=== PATIENT | male | born 1950 | race Caucasian/White ===

== ENCOUNTER 2017-07-25 14:34 | Observation (INO) ==
--- NOTE | 2017-07-25 15:21 | Emergency Department Note ---
Disposition Clinical Impression: Transaminitis, Liver mass, Hypokalemia, Weakness, Dehydration Nausea & vomiting Qualifiers: Vomiting type: unspecified Vomiting Intractability: intractable Qualified Code( s): R11.2 - Nausea with vomiting, unspecified Diarrhea Qualifiers: Diarrhea type: unspecified type Qualified Code(s): R19.7 - Diarrhea, unspecified Disposition: Admitted As Inpatient Condition: Good Time of Disposition: 19:05 General Adult HPI - General Chief complaint: ED Upper Respiratory Infection Stated complaint: Flu like symptoms Time Seen by Provider: 07/25/17 15:16 Source: patient Limitations: no limitations Nursing Notes Reviewed: Yes Vital Signs Reviewed: Yes - History of Present Illness HPI Narrative: Four-day history of nausea vomiting diarrhea. Generalized weakness. Has not wanted to eat or drink. Subjective fevers. Pain Scale: 8 - Related Data Home Medications Medication Instructions Recorded Confirmed Losartan Potassium [Cozaar] 50 mg PO DAILY #0 03/04/15 07/25/17 Metformin HCl [Metformin HCl ER] 1,000 mg PO BID #0 03/04/15 07/25/17 Metoprolol [Lopressor] 50 mg PO BID #0 03/04/15 07/25/17 Omeprazole [PriLOSEC] 20 mg PO BIDAC #0 03/04/15 07/25/17 Potassium Chloride [Klor-Con 10] 10 meq PO BID #0 03/04/15 07/25/17 Simvastatin [Zocor] 40 mg PO HS #0 03/04/15 07/25/17 hydroCHLOROthiazide 25 mg PO DAILY #0 03/04/15 07/25/17 [Hydrochlorothiazide] Paroxetine HCl [Paxil] 40 mg PO DAILY #0 03/07/15 07/25/17 HYDROcodone/Acet 5/325 mg [[place] 1 tab PO Q4H PRN 07/25/17 07/25/17 5-325 mg] Previous Rx's Medication Instructions Recorded Loratadine [Claritin] 10 mg PO DAILY #10 tablet 03/06/15 SitaGLIPtin [Januvia] 100 mg PO DAILY #30 tablet 03/07/15 Allergies Allergy/AdvReac Type Severity Reaction Status Date / Time No Known Allergies Allergy Verified 07/25/17 14:41 All systems ED: reviewed and negative except as stated. Constitutional: Reports: fever (Subjective), chills ENT ED: Denies: congestion Cardiovascular: Denies: chest pain, palpitations, syncope Respiratory: Reports: cough, sputum production. Denies: dyspnea Gastrointestinal: Reports: nausea, vomiting, diarrhea. Denies: abdominal pain, hematemesis, melena, hematochezia Genitourinary: Denies: urgency, dysuria, frequency, hematuria Musculoskeletal: Denies: back pain, neck pain Integumentary: Denies: rash Neurological: Reports: weakness. Denies: headache Past Medical History - Past Medical History Attestation: Yes The following information was validated with the patient. Source: patient Medical history: Reports: diabetes, GERD, hyperlipidemia, hypertension, renal disease Surgical history: Reports: orthopedic, other Psychiatric history: Reports: no psych history - Social History Smoking Status: Current every day smoker Smokeless Tobacco Status: No Alcohol use: Reports: none Drug use: Reports: none Physical Exam - General Limitations: no limitations General appearance: alert, in distress (Appears tired.) - Head Head exam: atraumatic, normocephalic, normal inspection - Eye Eye exam: Present: normal appearance, PERRL, EOMI. Absent: scleral icterus - ENT ENT exam: normal exam, normal oropharynx, mucous membranes moist - Neck Neck exam: Present: normal inspection, full ROM, trachea midline - Chest Chest inspection: Present: normal inspection, symmetric chest wall rise. Absent : tenderness - Respiratory Respiratory exam: Present: normal lung sounds bilaterally. Absent: respiratory distress, accessory muscle use - Cardiovascular Cardiovascular exam: Present: regular rate, normal rhythm, normal heart sounds - Abdominal Exam Abdominal exam: Present: soft, Non-Tender, distention (Abdomen rounded). Absent : tenderness, guarding, rebound, rigidity, organomegaly, Mathis's sign, Rovsing' s sign, tenderness at McBurney's Point - Extremities Exam Extremities exam: Present: normal inspection, full ROM, normal capillary refill. Absent: tenderness, pedal edema - Back Exam Back exam: Present: normal inspection, full ROM. Absent: tenderness - Neurological Exam Neurological exam: Present: alert, oriented X3 - Psychiatric Psychiatric exam: Present: normal affect, normal mood - Skin Skin exam: Present: warm, dry, intact, normal color. Absent: rash, cyanosis, diaphoresis, erythema Course Course Narrative: Male patient presenting to the emergency room complaining of a four-day history of nausea vomiting and diarrhea. He states it has been over 2 day since he has vomited however he is nauseated. Complains of generalized weakness. He does appear to be weak while resting in bed. Decreased by mouth intake. Denies any hematochezia melena or hematemesis. Reports chills. Reports a subjective fever as his felt that he was hot. He appears clinically dehydrated at this time. Denies any chest pain or shortness of breath but does report a productive cough with a yellow sputum. We will start patient on a liter of fluids while he is here. We will also get basic lab workup inclusive of an EKG and chest x-ray. He is agreeable to this. - Reevaluation(s) Reevaluation #1: Patient has ischemic changes in leads V 2 through 6. He has some ST depressions and T-wave inversions. He also has a transaminitis. Patient's abdomen is scanned he does not have an increasing hepatic mass. Patient states that he has a lung mass this was not visualized on our chest CT as well as possible bone mass to the right humerus. He is supposed to be following up with John but has not. He is requesting to be seen by oncology while here. We will admit him to the hospital for increasing weakness, EKG changes, dehydration, as well as the increasing size and a hepatic mass. He is agreeable with this. - Consultations Consultation #1: Dr Kang accepted patient in stable condition Time: 19:03 Vital Signs Temperature 98.8 F 07/25/17 14:42 Pulse Rate 67 07/25/17 14:42 Respiratory Rate 20 07/25/17 14:42 Blood Pressure 149/96 07/25/17 14:42 O2 Sat by Pulse Oximetry 97 07/25/17 14:42 Temperature 99.4 F 07/25/17 20:35 Pulse Rate 76 07/25/17 20:35 Respiratory Rate 16 07/25/17 20:35 Blood Pressure 158/77 07/25/17 20:35 O2 Sat by Pulse Oximetry 93 07/25/17 20:35 Oxygen Delivery Oxygen Delivery Room Air Medical Decision Making - Medical Records Medical records reviewed: Yes I reviewed the patient's medical records. - Lab Data Lab results reviewed: Yes I reviewed the patient's lab results. Result diagrams: 07/25/17 14:50 07/25/17 14:50 Lab Results 07/25/17 07/25/17 07/25/17 Range/Units 14:50 14:50 15:36 WBC 9.1 (4.3-11.1) K/mcL RBC 5.44 (4.19-5.50) M/mcL Hgb 15.3 (12.9-16.9) g/dL Hct 44.6 (37.5-50.1) % MCV 82.0 L (83.0-100.0) fL MCH 28.1 (28.0-33.3) pg MCHC 34.3 (31.6-35.5) g/dL RDW 14.4 (11.5-14.5) % Plt Count 295 (140-400) K/mcL MPV 9.7 (9.4-12.4) fL Immature Gran % 0.3 (0-4) % Seg Neutrophils % 59.1 % Lymphocytes % 21.9 % Monocytes % 18.4 % Eosinophils % 0.0 % Basophils % 0.3 % Neutrophils # 5.4 (1.6-8.9) K/mcL Lymphocytes # 2.0 (0.6-4.6) K/mcL Monocytes # 1.7 H (0.0-1.3) K/mcL Eosinophils # 0.0 (0.0-0.6) K/mcL Basophils # 0.0 (0.0-0.2) K/mcL Sodium 132 L (136-145) mEq/L Potassium 2.9 L (3.5-5.1) mEq/L Chloride 93 L (98-107) mEq/L Carbon Dioxide 27 (23-29) mEq/L BUN 23 (8-23) mg/dL Creatinine 0.99 (0.70-1.30) mg/dL Est GFR ( Amer) > 60 (> 60) Est GFR (Non-Af Amer) > 60 (> 60) BUN/Creatinine Ratio 23 (6-26) Glucose 200 H (70-105) mg/dL Calculated Osmolality 283 (280-300) Lactic Acid (0.5-2.2) mmol/L Calcium 9.1 (8.6-10.3) mg/dL Phosphorus 3.2 (2.7-4.5) mg/dL Magnesium 1.9 (1.6-2.6) mg/dL Total Bilirubin 0.8 (0.3-1.0) mg/dL AST 113 H (13-39) Units/L ALT 120 H (7-52) Units/L Alkaline Phosphatase 66 (34-104) Units/L Troponin I < 0.03 (< 0.04) ng/mL Serum Total Protein 7.8 (6.4-8.9) g/dL Albumin 4.3 (3.5-5.7) g/dL Globulin 3.5 (2.4-3.5) g/dL Albumin/Globulin Ratio 1.2 (1.1-2.2) Amylase 20 L (29-103) Units/L Lipase 14 (11-82) Units/L Urine Color (Yellow) Urine Clarity (Clear) Urine pH (5.0-8.0) pH Units Ur Specific [place] (1.010-1.025) Urine Protein (Neg-Trace) mg/dL Urine Glucose (UA) (Normal) mg/dL Urine Ketones (Negative) mg/dL Urine Blood (Negative) Urine Nitrite (Negative) Urine Bilirubin (Negative) Urine Urobilinogen (Normal) mg/dL Ur Leukocyte Esterase (Negative) Urine Microscopic RBC (0-3) per hpf Urine Microscopic WBC (0-3) per hpf Ur Squamous Epith Cells (None-Few) per lpf Urine Bacteria (None-Few) per hpf Ur Culture Indicated? (NO) 07/25/17 07/25/17 Range/Units 15:47 16:56 WBC (4.3-11.1) K/mcL RBC (4.19-5.50) M/mcL Hgb (12.9-16.9) g/dL Hct (37.5-50.1) % MCV (83.0-100.0) fL MCH (28.0-33.3) pg MCHC (31.6-35.5) g/dL RDW (11.5-14.5) % Plt Count (140-400) K/mcL MPV (9.4-12.4) fL Immature Gran % (0-4) % Seg Neutrophils % % Lymphocytes % % Monocytes % % Eosinophils % % Basophils % % Neutrophils # (1.6-8.9) K/mcL Lymphocytes # (0.6-4.6) K/mcL Monocytes # (0.0-1.3) K/mcL Eosinophils # (0.0-0.6) K/mcL Basophils # (0.0-0.2) K/mcL Sodium (136-145) mEq/L Potassium (3.5-5.1) mEq/L Chloride (98-107) mEq/L Carbon Dioxide (23-29) mEq/L BUN (8-23) mg/dL Creatinine (0.70-1.30) mg/dL Est GFR ( Amer) (> 60) Est GFR (Non-Af Amer) (> 60) BUN/Creatinine Ratio (6-26) Glucose (70-105) mg/dL Calculated Osmolality (280-300) Lactic Acid 2.4 H (0.5-2.2) mmol/L Calcium (8.6-10.3) mg/dL Phosphorus (2.7-4.5) mg/dL Magnesium (1.6-2.6) mg/dL Total Bilirubin (0.3-1.0) mg/dL AST (13-39) Units/L ALT (7-52) Units/L Alkaline Phosphatase (34-104) Units/L Troponin I (< 0.04) ng/mL Serum Total Protein (6.4-8.9) g/dL Albumin (3.5-5.7) g/dL Globulin (2.4-3.5) g/dL Albumin/Globulin Ratio (1.1-2.2) Amylase (29-103) Units/L Lipase (11-82) Units/L Urine Color Dark Yellow (Yellow) Urine Clarity Cloudy A (Clear) Urine pH 5.5 (5.0-8.0) pH Units Ur Specific [place] > 1.030 H (1.010-1.025) Urine Protein 100 H (Neg-Trace) mg/dL Urine Glucose (UA) 250 H (Normal) mg/dL Urine Ketones 15 H (Negative) mg/dL Urine Blood Negative (Negative) Urine Nitrite Negative (Negative) Urine Bilirubin Small H (Negative) Urine Urobilinogen Normal (Normal) mg/dL Ur Leukocyte Esterase Negative (Negative) Urine Microscopic RBC 5-15 H (0-3) per hpf Urine Microscopic WBC 5-15 H (0-3) per hpf Ur Squamous Epith Cells Many H (None-Few) per lpf Urine Bacteria None Seen (None-Few) per hpf Ur Culture Indicated? NO (NO) - Radiology Data Radiology results reviewed: Yes I reviewed the patient's radiology results. Chest X-Ray 07/25/17 15:35 IMPRESSION: No acute cardiopulmonary disease. D/ / Chris Loaiza MD / Chris Loaiza MD Interpreting Provider: Chris Loaiza MD Abdomen/Pelvis CT 07/25/17 17:09 IMPRESSION: 1. The mass in the right hepatic lobe has mildly enlarged. However, it has a similar appearance to the previous exam. Again, correlation with prior biopsy results is suggested. 2. Mild fatty infiltration of the liver. 3. Normal appearing appendix. 4. No obstructive uropathy. 5. Colonic diverticulosis without evidence for diverticulitis. 6. Enlargement of low-attenuation lesion in the right adrenal gland again most consistent with an adenoma. 7. No acute abnormalities seen in the abdomen or pelvis. D/ / 07/25/2017 17:40:13 Scot Sanchez MD / hunter Interpreting Provider: Scot Sanchez MD Chest CT 07/25/17 17:46 IMPRESSION: 1. No acute abnormalities seen in the chest D/ / Scot Sanchez MD / Scot Sanchez MD Interpreting Provider: Scot Sanchez MD Head CT 07/25/17 17:46 IMPRESSION: No acute intracranial abnormality. Diffuse atrophic changes with findings suggesting chronic microvascular ischemia D/ / Scot Sanchez MD / Scot Sanchez MD Interpreting Provider: Scot Sanchez MD - EKG Data EKG #1 EKG attestation: Yes I reviewed and interpreted this EKG. EKG results narrative: Normal sinus rhythm at a rate of 72. WV intervals 129. Castration is 86. QT is 400. QTC is 425. Does have T-wave inversions in the lateral leads. Also ST depressions in leads V3 be for and V5. We have no previous EKG to compare to. Attestation Statement - Attestation Attestation: I examined this patient and my medical decision-making was reviewed with the Resident Physician. I agree with the documented findings, disposition and treatment plan as described except to the extent set forth below. Lactic acidosis, acute kidney injury, transaminitis. This is in the setting of ischemic changes on EKG. We will give aspirin. Plan to admit for cardiology consult. Given the degree of weakness I would be concerned about obtaining echocardiogram. I would like to rule out any type of cardiomyopathy as these ischemic EKG changes are new. Cardiac biomarkers are negative. There is evidence of hepatic mass. I would be concerned in the setting of elevated transaminases. We will admit for further evaluation.
[2017-07-25] MEDS ORDERED: 0.9 % Sodium Chloride 1,000 ML IVC ONE (15:36)
[2017-07-25 16:02] LABS: Basophils % 0.3 %; Hematocrit 44.6 % (37.5-50.1); Hemoglobin 15.3 g/dL (12.9-16.9); Immature Granulocytes % 0.3 % (0-4); Lymphocytes % 21.9 %; Mean Corpuscular HGB Conc 34.3 g/dL (31.6-35.5); Mean Corpuscular Hemoglobin 28.1 pg (28.0-33.3); Mean Platelet Volume 9.7 fL (9.4-12.4); Monocytes # 1.7 K/mcL (0.0-1.3); Monocytes % 18.4 %; Neutrophils # 5.4 K/mcL (1.6-8.9); Platelet Count 295 K/mcL (140-400); Red Blood Count 5.44 M/mcL (4.19-5.50); Red Cell Distribution Width 14.4 % (11.5-14.5); Segmented Neutrophils % 59.1 %
[2017-07-25 16:19] LABS: Alanine Aminotransferase 120 Units/L (7-52); Albumin 4.3 g/dL (3.5-5.7); Albumin/Globulin Ratio 1.2 (1.1-2.2); Alkaline Phosphatase 66 Units/L (34-104); Amylase 20 Units/L (29-103); Aspartate Amino Transferase 113 Units/L (13-39); BUN/Creatinine Ratio 23 (6-26); Bilirubin,Total 0.8 mg/dL (0.3-1.0); Blood Urea Nitrogen 23 mg/dL (8-23); Calcium 9.1 mg/dL (8.6-10.3); Carbon Dioxide 27 mEq/L (23-29); Chloride 93 mEq/L (98-107); Globulin 3.5 g/dL (2.4-3.5); Glucose 200 mg/dL (70-105); Lipase 14 Units/L (11-82); Osmolality,Calculated 283 (280-300); Potassium 2.9 mEq/L (3.5-5.1); Sodium 132 mEq/L (136-145); Total Protein 7.8 g/dL (6.4-8.9); eGFR For African Americans > 60 (> 60); eGFR For Non-African Americans > 60 (> 60)
[2017-07-25 16:21] LABS: Magnesium 1.9 mg/dL (1.6-2.6); Phosphorous 3.2 mg/dL (2.7-4.5)
[2017-07-25 16:22] LABS: Troponin I < 0.03 ng/mL (< 0.04)
[2017-07-25 17:35] LABS: Bilirubin,Urine Small (Negative); Blood,Urine Negative (Negative); Clarity,Urine Cloudy (Clear); Color,Urine Dark Yellow (Yellow); Glucose,Urine (UA) 250 mg/dL (Normal); Ketones,Urine 15 mg/dL (Negative); Leukocyte Esterase,Urine Negative (Negative); Nitrite,Urine Negative (Negative); PH,Urine 5.5 pH Units (5.0-8.0); Protein,Urine 100 mg/dL (Neg-Trace); Specific Gravity,Urine > 1.030 (1.010-1.025); Urobilinogen,Urine Normal (Normal)
[2017-07-25 17:38] LABS: Bacteria,Urine None Seen per hpf (None-Few); Squamous Epithelial Cell,Urine Many per lpf (None-Few)
--- NOTE | 2017-07-25 20:57 | Internal Med History&Physical ---
Date of Encounter: 07/25/17 Time of Encounter: 20:40 Assessment and Plan (1) Nausea & vomiting Status: Acute ASSESSMENT: - N/V due to *Gastroenteritis *Gastritis *PUD *Pancreatitis *Cholecystitis *Diverticulitis *UTI PLAN: - NPO apart from meds - IVF - Stool WBC, O/P, C/S, Stool C.diff - Urine C+S - CBCD, BMP in AM - GI consult - Phenergan 12.5 mg IV q 4 hr PRN N/V - Zofran (ondansetron) PRN Qualifiers: Vomiting type: unspecified Vomiting Intractability: intractable Qualified Code(s): R11.2 - Nausea with vomiting, unspecified (2) Diarrhea Status: Acute patient stated that his last episode was early this morning, we will obtain stool studies. Qualifiers: Diarrhea type: unspecified type Qualified Code(s): R19.7 - Diarrhea, unspecified (3) Liver mass Status: Acute We will consult oncology as per patient request (4) Diabetes mellitus type 2, uncontrolled Status: Chronic We will start the patient on insulin sliding scale with medium coverage Qualifiers: Diabetes mellitus custodial insulin use: without custodial use Diabetes mellitus complication status: without complication Qualified Code(s): E11.65 - Type 2 diabetes mellitus with hyperglycemia (5) HTN (hypertension) Status: Chronic We will continue home medication and continue to monitor blood pressure like and patient. Qualifiers: Hypertension type: essential hypertension Qualified Code(s): I10 - Essential (primary) hypertension (6) GERD (gastroesophageal reflux disease) Status: Chronic Qualifiers: Esophagitis presence: esophagitis presence not specified Qualified Code(s) : K21.9 - Gastro-esophageal reflux disease without esophagitis (7) Tobacco abuse Status: Chronic (8) Hypokalemia Status: Acute We will replace potassium and repeat metabolic panel (9) Dehydration Status: Acute Most likely secondary to decreased oral intake we will start the patient on IV hydration with isotonic fluid. (10) Transaminitis Status: Acute (11) Hyponatremia Status: Acute Hyponatremia secondary to volume depletion and decreased oral intake, will start patient on IV hydration with isotonic fluid. (12) DVT prophylaxis Status: Acute [facility] - H&P: HPI Chief complaint: N,V,D History of present illness: Mr. Bucio is a 67 year old male presenting to the emergency room complaining of a four-days history of nausea,vomiting and diarrhea associated with generalized weakness and decreased oral intake. He also complaining of subjective fever associated with chills. The patient was evaluated by the ER staff and his laboratory data revealed transaminitis and his CAT scan of the abdomen revealed stable hepatic mass. Patient has ischemic changes in leads V 2 through 6. He has some ST depressions and T-wave inversions, he denies chest pain, difficulty breathing. The patient was admitted for further evaluation and management of intractable nausea vomiting and diarrhea as well as ischemic changes on EKG. Past Med Surg Social Fam HX - Past Medical History Medical history: diabetes, GERD, hyperlipidemia, hypertension, renal disease Psychiatric history: no psych history - Past Surgical History Surgical History: orthopedic, other - Social History Smoking Status: Current every day smoker Packs per day: 1 Smokeless Tobacco Status: No Alcohol use: none Drug use: none - Family History Father Hx Family Cancer: Yes Mother Hx Family Cardiac Disorders: Yes Internal Medicine - H&P: Meds Losartan Potassium [Cozaar] 50 mg PO DAILY #0 03/04/15 [History] Metformin HCl [Metformin HCl ER] 1,000 mg PO BID #0 03/04/15 [History] Metoprolol [Lopressor] 50 mg PO BID #0 03/04/15 [History] Omeprazole [PriLOSEC] 20 mg PO BIDAC #0 03/04/15 [History] Potassium Chloride [Klor-Con 10] 10 meq PO BID #0 03/04/15 [History] Simvastatin [Zocor] 40 mg PO HS #0 03/04/15 [History] hydroCHLOROthiazide [Hydrochlorothiazide] 25 mg PO DAILY #0 03/04/15 [History] Loratadine [Claritin] 10 mg PO DAILY #10 tablet 03/06/15 [Rx] Paroxetine HCl [Paxil] 40 mg PO DAILY #0 03/07/15 [History] SitaGLIPtin [Januvia] 100 mg PO DAILY #30 tablet 03/07/15 [Rx] HYDROcodone/Acet 5/325 mg [[place] 5-325 mg] 1 tab PO Q4H PRN 07/25/17 [History] 3 Allergy/AdvReac Type Severity Reaction Status Date / Time No Known Allergies Allergy Verified 07/25/17 14:41 All Systems PM: A 10-system review of systems was performed and is negative for pertinent findings except as documented above in the HPI. - Constitutional Constitutional: no chills, no fever(s), no night sweats - Cardiovascular Cardiovascular ROS IM: no chest pain, no diaphoresis, no dyspnea, no lightheadedness, no palpitations, no syncope - Respiratory Respiratory: no cough, no dyspnea, no wheezing, no excessive phlegm production - Gastrointestinal Gastrointestinal: abdominal pain, diarrhea, nausea, vomiting, no hematemesis, no hematochezia, no melena - Musculoskeletal Musculoskeletal ROS IM: no numbness, no tingling - Neurological Neurological ROS: no confusion, no convulsions, no focal weakness, no numbness, no tingling, no tremor(s) - Constitutional Vitals: Temp Pulse Resp BP Pulse Ox 99.4 F 76 16 158/77 93 07/25/17 20:35 07/25/17 20:35 07/25/17 20:35 07/25/17 20:35 07/25/17 20:35 General appearance: Present: A&O X 3 - GI/Abdominal GI/Abdominal exam: Present: normal bowel sounds, soft, no peritoneal signs. Absent: distended, tenderness - Extremities Exam Extremities exam: Present: warm, radial pulses palpable and symmetrical. Absent : calf tenderness, cyanotic, pedal edema Internal Med - H&P Results - Labs CBC & Chem 7: 07/27/17 03:28 07/27/17 08:12
[2017-07-25] MEDS ORDERED: Ondansetron 4 MG/2 ML VIAL IVP PRN (21:25)
[2017-07-25] MEDS ORDERED: *HR* Promethazine 25 MG/ML VIAL IVP PRN (21:25)
[2017-07-25] MEDS ORDERED: Naloxone 0.4 MG/ML INJ IVP PRN (21:25)
[2017-07-25] MEDS: 0.9 % Sodium Chloride 1,000 ML IVC SCH (23:06)
[2017-07-25] MEDS ORDERED: Acetaminophen 325 MG TABLET PO PRN (23:10)
[2017-07-26] MEDS: 0.9 % Sodium Chloride 1,000 ML IVC SCH (02:00)
[2017-07-26 02:16] LABS: Hepatitis B Core IgM Nonreactive (Nonreactive); Hepatitis B Surface Antigen Nonreactive (Nonreactive); Hepatitis C Virus Antibody Nonreactive (Nonreactive)
[2017-07-26 04:03] LABS: Hepatitis A Antibody IgM Nonreactive (Nonreactive)
[2017-07-26] MEDS: *HR* Heparin 5,000 UNIT/ML VIAL SQ SCH ×2 (05:06→17:05)
[2017-07-26] MEDS: Pantoprazole 40 MG VIAL IVP SCH ×2 (05:06→17:05)
[2017-07-26 05:38] LABS: INR 1.1; Prothrombin Time 12.4 Seconds (9.4-12.1)
[2017-07-26 05:39] LABS: Basophils % 0.4 %; Immature Granulocytes % 0.5 % (0-4); Lymphocytes # 1.6 K/mcL (0.6-4.6); Lymphocytes % 28.7 %; Mean Corpuscular HGB Conc 34.2 g/dL (31.6-35.5); Mean Corpuscular Hemoglobin 28.2 pg (28.0-33.3); Mean Corpuscular Volume 82.4 fL (83.0-100.0); Mean Platelet Volume 9.6 fL (9.4-12.4); Monocytes % 17.8 %; Platelet Count 194 K/mcL (140-400); Red Blood Count 4.61 M/mcL (4.19-5.50); Segmented Neutrophils % 52.6 %
[2017-07-26 05:40] LABS: Activated Partial Thrombo Time 28.8 Seconds (26.0-36.0)
[2017-07-26 07:08] LABS: Alanine Aminotransferase 97 Units/L (7-52); Albumin 3.3 g/dL (3.5-5.7); Albumin/Globulin Ratio 1.2 (1.1-2.2); Alkaline Phosphatase 50 Units/L (34-104); Aspartate Amino Transferase 103 Units/L (13-39); BUN/Creatinine Ratio 22 (6-26); Bilirubin,Total 0.6 mg/dL (0.3-1.0); Blood Urea Nitrogen 15 mg/dL (8-23); Calcium 7.6 mg/dL (8.6-10.3); Carbon Dioxide 23 mEq/L (23-29); Chloride 102 mEq/L (98-107); Chol/HDL Ratio 5.2 (0-4.9); Cholesterol 93 mg/dL (< 200); Globulin 2.7 g/dL (2.4-3.5); Glucose 111 mg/dL (70-105); HDL Cholesterol 18 mg/dL (40-59); LDL Cholesterol,Calculated 49 mg/dL (0-99); Osmolality,Calculated 282 (280-300); Phosphorous 1.7 mg/dL (2.7-4.5); Potassium 2.9 mEq/L (3.5-5.1); Sodium 135 mEq/L (136-145); Triglycerides 131 mg/dL (< 150); eGFR For African Americans > 60 (> 60); eGFR For Non-African Americans > 60 (> 60)
--- NOTE | 2017-07-26 15:19 | Oncology Inp Consult Note ---
<Kenny Downey - Last Filed: 07/27/17 13:28> Date of Encounter: 07/27/17 - Data of Consult Requesting Physician: Marielle Blunt CNP Primary Care Provider: Marbin Barger Jr, MD - Consult Narrative History of present illness: Mr. Bucio is a 67 year old male hospitalized with nausea, vomiting diarrhea for 4 days PMH of hepatic mass 10 yrs ago, minimally changed in recent CT scan. Liver was bx several yrs ago by patient, he follows with his PCPand did not need onc follow up. CT imaging wo contrast 07/14 showed hepatic mass, AST, ALT mildly up. Recommended viral hepatitis panel, AFP, MRI liver as outpatient to further evaluate liver mass. c diff/viral panel to be checked I examined patient myself and reviewed HPI with Xiomara Aviles NP, formulated above plan of care. Patient is agreeable to the above plan Medications and Allergies Losartan Potassium [Cozaar] 50 mg PO DAILY #0 03/04/15 [History] Metformin HCl [Metformin HCl ER] 1,000 mg PO BID #0 03/04/15 [History] Metoprolol [Lopressor] 50 mg PO BID #0 03/04/15 [History] Omeprazole [PriLOSEC] 20 mg PO BIDAC #0 03/04/15 [History] Potassium Chloride [Klor-Con 10] 10 meq PO BID #0 03/04/15 [History] Simvastatin [Zocor] 40 mg PO HS #0 03/04/15 [History] hydroCHLOROthiazide [Hydrochlorothiazide] 25 mg PO DAILY #0 03/04/15 [History] Loratadine [Claritin] 10 mg PO DAILY #10 tablet 03/06/15 [Rx] Paroxetine HCl [Paxil] 40 mg PO DAILY #0 03/07/15 [History] SitaGLIPtin [Januvia] 100 mg PO DAILY #30 tablet 03/07/15 [Rx] HYDROcodone/Acet 5/325 mg [[place] 5-325 mg] 1 tab PO Q4H PRN 07/25/17 [History] 3 Allergy/AdvReac Type Severity Reaction Status Date / Time No Known Allergies Allergy Verified 07/25/17 14:41 Oncology - Exam - Constitutional Vitals: Temp Pulse Resp BP Pulse Ox 99.6 F 81 16 154/80 96 07/27/17 11:34 07/27/17 11:34 07/27/17 11:34 07/27/17 11:34 07/27/17 11:34 General appearance: no acute distress - Head Head exam: Present: atraumatic, normal inspection - Eye Eye exam: Present: sclera anicteric - ENT ENT exam: Present: mucous membranes moist - Neck Neck exam: Present: full ROM - Respiratory Respiratory exam: Present: CTAB - GI/Abdominal GI/Abdominal exam: Present: soft Additional comments: non tender no masses - Extremities Exam Extremities exam: Present: full ROM, normal inspection - Neurological Exam Neurological exam: Present: alert, CN II-XII intact, oriented X3, no focal deficits - Psychiatric Psychiatric exam: Present: normal mood - Skin Skin exam: Present: normal color Oncology - Results Labs: Short CBC 07/27/17 Range/Units 03:28 WBC 5.2 (4.3-11.1) K/mcL Hgb 13.3 (12.9-16.9) g/dL Hct 38.9 (37.5-50.1) % Plt Count 186 (140-400) K/mcL Neutrophils # 2.3 (1.6-8.9) K/mcL BMP 07/27/17 08:12 Sodium 134 L Potassium 2.9 L Chloride 100 Carbon Dioxide 25 BUN 9 Creatinine 0.83 Glucose 144 H Calcium 8.3 L Liver Function 07/27/17 Range/Units 03:28 AST 109 H (13-39) Units/L ALT 99 H (7-52) Units/L Urine 07/27/17 Range/Units 07:37 Urine Color Yellow (Yellow) Urine Clarity Clear (Clear) Urine pH 6.0 (5.0-8.0) pH Units Ur Specific [place] 1.024 (1.010-1.025) Urine Protein 30 H (Neg-Trace) mg/dL Urine Glucose (UA) 250 H (Normal) mg/dL Consult Discharge Plan - Plan Referrals: Marbin Barger Jr, MD [Primary Care Provider] - <Xiomara Verma - Last Filed: 07/29/17 09:29> Date of Encounter: 07/26/17 Time of Encounter: 15:19 Assessment and Plan (1) Liver mass Status: Acute Assessment and plan: CT abdomen/pelvis without contrast 07/25/2017 reveals mass in the right hepatic lobe has mildly enlarged, but similar in appearance to prior exams, Mild fatty infiltration of the liver, Colonic diverticulosis without evidence for diverticulitis, Enlargement of low-attenuation lesion in the right adrenal gland again most consistent with an adenoma. Trending images over past 8 years (CT and US abdomen)-right hepatic lobe mass appears to have been stable and had at one point even decreased in size. Patient states he had liver mass biopsy about 10 years ago which according to patient was benign, will locate these results for review. *Located FNA liver from 12/12/2006-results show rare benign hepatocytes, non- diagnostic. Ordered MRI abdomen wo/w for further assessment. AST 103, ALT 97, total bili normal at 0.6 Hepatitis panel negative. It is unlikely for hepatic mass to be the source of his nausea, vomiting and diarrhea given its chronicity (although it has recently enlarged). Primary team working up, stool cx pending. urine cx negative. GI has been consulted for further recommendations. Occult stool positive for blood, hgb stable, he would benefit from screening colonoscopy inpatient vs. outpatient. (2) Enchondroma of right humerus Status: Acute Assessment and plan: MRI of the right humerus in December 2016 revealed 6.5 x 1.7 x 1.7 cm nonaggressive appearing lesion in the proximal right humeral diaphysis most likely representing a benign enchondroma. He was referred to ortho at [facility] for further workup however, cancelled his appointments. Consider continued non emergent workup Please refer to Dr. Navarro's attestation below. - Data of Consult Patient: new to practice Consult date: 07/26/17 Requesting Physician: Marielle Blunt CNP Primary Care Provider: Marbin Barger Jr, MD Past Med Surg Social Fam HX - Past Medical History Medical history: diabetes, GERD, hyperlipidemia, hypertension, renal disease Psychiatric history: no psych history - Past Surgical History Surgical History: orthopedic, other - Social History Smoking Status: Current every day smoker Packs per day: 1 Smokeless Tobacco Status: No Alcohol use: none Drug use: none - Family History Father Hx Family Cancer: Yes Mother Hx Family Cardiac Disorders: Yes Constitutional: Present: anorexia, fatigue, weakness. Absent: fever(s), frequent falls, weight loss Eyes: Absent: change in vision Nose, mouth and throat: Absent: dysphagia Cardiovascular: Absent: chest pain, irregular heart rhythm, palpitations Respiratory: Absent: cough, dyspnea Gastrointestinal: Present: as per HPI, abdominal pain, diarrhea, nausea, vomiting. Absent: hematemesis, hematochezia, melena Additional comments: denies dysuria or hematuria Musculoskeletal: Present: arthralgias, muscle weakness Integumentary: Absent: wounds Neurological: Absent: focal weakness, frequent falls, memory loss Hematologic/Lymphatic: Present: as per HPI Oncology - Exam - Constitutional Vitals: Temp Pulse Resp BP Pulse Ox 98.3 F 80 16 155/81 97 07/26/17 07:30 07/26/17 07:30 07/26/17 07:30 07/26/17 07:30 07/26/17 07:30 General appearance: no acute distress, no febrile - Head Head exam: Present: atraumatic - ENT ENT exam: Present: mucous membranes moist - Respiratory Respiratory exam: Present: CTAB. Absent: respiratory distress - Cardiovascular Cardiovascular exam: Present: RRR, +S1, +S2 - GI/Abdominal GI/Abdominal exam: Present: normal bowel sounds, soft. Absent: tenderness - Extremities Exam Extremities exam: Present: normal inspection. Absent: calf tenderness - Neurological Exam Neurological exam: Present: alert, oriented X3, no focal deficits, strengths equal and symetr throughout - Psychiatric Psychiatric exam: Present: normal mood Additional comments: inattentive at times - Skin Skin exam: Present: dry, normal color, warm Oncology - Results Labs: Short CBC 07/26/17 Range/Units 03:36 WBC 5.6 (4.3-11.1) K/mcL Hgb 13.0 D (12.9-16.9) g/dL Hct 38.0 (37.5-50.1) % Plt Count 194 (140-400) K/mcL Neutrophils # 3.0 (1.6-8.9) K/mcL BMP 07/26/17 07/26/17 07/26/17 03:36 09:14 09:14 Sodium 135 L Potassium 2.9 L 3.0 L Chloride 102 Carbon Dioxide 23 BUN 15 Creatinine 0.69 L Glucose 111 H Calcium 7.6 L 8.2 L Cardiac Enzymes 07/25/17 07/26/17 07/26/17 Range/Units 22:04 03:36 09:14 Troponin I < 0.03 < 0.03 < 0.03 (< 0.04) ng/mL Liver Function 07/26/17 Range/Units 03:36 Total Bilirubin 0.6 (0.3-1.0) mg/dL AST 103 H (13-39) Units/L ALT 97 H (7-52) Units/L Alkaline Phosphatase 50 (34-104) Units/L Albumin 3.3 L (3.5-5.7) g/dL
[2017-07-26 16:44] LABS: Occult Blood,Stool Positive (Negative)
[2017-07-26 17:24] LABS: Adenovirus F 40/41 PCR Not detected (Not detect); Astrovirus PCR Not detected (Not detect); C.difficile Toxin A/B by PCR Not detected (Not detect); Campylobacter by PCR Not detected (Not detect); Cryptosporidium by PCR Not detected (Not detect); Cyclospora cayetanensis PCR Not detected (Not detect); E. coli O157 by PCR Not detected (Not detect); Entamoeba histolytica PCR Not detected (Not detect); Enteroaggregative E.coli(EAEC) Not detected (Not detect); Enteropathogenic E.coli(EPEC) Not detected (Not detect); Enterotoxigenic E.coli (ETEC) Not detected (Not detect); Giardia lamblia PCR Not detected (Not detect); Norovirus GI/GII PCR Not detected (Not detect); Plesiomonas shigelloides PCR Not detected (Not detect); Rotavirus A PCR Not detected (Not detect); Salmonella PCR Not detected (Not detect); Sapovirus PCR Not detected (Not detect); Shig/EnteroinvasiveE coli EIEC Not detected (Not detect); Shigalike tox-prod E coli STEC Not detected (Not detect); Vibrio PCR Not detected (Not detect); Vibrio cholerae PCR Not detected (Not detect); Yersinia enterocolitica PCR Not detected (Not detect)
--- NOTE | 2017-07-26 18:42 | Internal Med Progress Note ---
Date of Encounter: 07/26/17 Time of Encounter: 09:45 - Assessment and plan (1) Dehydration Current Visit: Yes Status: Acute Assessment and plan: Secondary to nausea, vomiting, diarrhea for 4 days. Continue IV fluid hydration , replace electrolytes, monitor fluid balance. (2) Diarrhea Current Visit: Yes Status: Acute Assessment and plan: Patient reports diarrhea for the last 4 days, up to 3 episodes daily. GI panel is negative. Stool occult blood is positive. Hemoglobin is stable. Most likely due to inflammation and irritation. Continue to monitor and consider GI/surgery consultation if hemoglobin drops. Continue IV fluid hydration Qualifiers: Diarrhea type: unspecified type Qualified Code(s): R19.7 - Diarrhea, unspecified (3) Hypokalemia Current Visit: Yes Status: Acute Assessment and plan: Secondary to nausea, vomiting, diarrhea. K rider 40 mEq 1 ordered. Magnesium is 2.2. Continue to monitor labs. (4) Liver mass Current Visit: Yes Status: Acute Assessment and plan: Patient with stable liver mass. He reports that he has known about for at least 10 years. He states that he had a biopsy 10 years ago and did not ever follow up. Patient has been evaluated by oncology today, I appreciate the recommendation consultation. MRI abdomen has been ordered by oncology. Checking AFP and ammonia, transaminases were elevated as well. Hepatitis panel is negative. We will continue to monitor, treat nausea, monitor fluid balance, wait for MRI results. (5) Nausea & vomiting Current Visit: Yes Status: Acute Assessment and plan: 4 day history. Patient reports that nausea remains, vomiting has stopped 2 days ago. He reports still having diarrhea up to 3 times daily. GI panel was negative. Stools positive for blood. Continue IV fluid hydration, monitor electrolytes, antiemetics as needed. Patient reported earlier today he was feeling better and has advanced diet to clear liquids. Continue to advance as tolerated. Qualifiers: Vomiting type: unspecified Vomiting Intractability: intractable Qualified Code(s): R11.2 - Nausea with vomiting, unspecified (6) Transaminitis Current Visit: Yes Status: Acute Assessment and plan: Transaminases elevated. Likely secondary to nausea and vomiting. Levels are improving, AST is 103, down from 113. HDL T is 97, down from 120. We will continue to monitor and treat nausea and vomiting, hydrate with IV fluids. Abdomen MRI is pending. (7) Diabetes mellitus type 2, uncontrolled Current Visit: Yes Status: Chronic Assessment and plan: A1c is ordered and pending. Continue sliding scale insulin, Accu-Cheks before meals and at bedtime, diabetic diet. Qualifiers: Diabetes mellitus custodial insulin use: without pediatric medical assistant use Diabetes mellitus complication status: without complication Qualified Code(s): E11.65 - Type 2 diabetes mellitus with hyperglycemia (8) GERD (gastroesophageal reflux disease) Current Visit: Yes Status: Chronic Assessment and plan: Chronic. Continue Protonix. Qualifiers: Esophagitis presence: esophagitis presence not specified Qualified Code(s) : K21.9 - Gastro-esophageal reflux disease without esophagitis (9) HTN (hypertension) Current Visit: No Status: Chronic Assessment and plan: Mild hypertension. Continue home medications, continue to monitor. Qualifiers: Hypertension type: essential hypertension Qualified Code(s): I10 - Essential (primary) hypertension (10) Tobacco abuse Current Visit: No Status: Chronic Assessment and plan: Denies need for nicotine replacement therapy. We will continue to summer counselor and encourage. (11) DVT prophylaxis Current Visit: Yes Status: Acute Assessment and plan: Heparin twice daily - Time Spent With Patient less than 15 minutes - Subjective Interval history: Patient was seen and assessed at 9:45 AM. He reports no nausea for 2 days. Vomiting has resolved. He reports that he is still having diarrhea up to 3 times daily. He reports he is very tired, rest with his eyes closed through exam. He does appear to answer questions appropriately, though slowly. Patient has requested to advance diet. - Constitutional Vitals: Temp Pulse Resp BP Pulse Ox 99.3 F 83 16 152/69 96 07/26/17 15:33 07/26/17 15:33 07/26/17 15:33 07/26/17 15:33 07/26/17 15:33 General appearance: Present: cooperative, A&O X 3, pleasant, no acute distress, answers questions appropriately - Head Head exam: Present: atraumatic, normal inspection, normocephalic - Eye Eye exam: Present: normal appearance, conjuntiva pink, sclera anicteric - Neck Neck exam general surgery: Present: normal inspection, supple, trachea midline. Absent: lymphadenopathy, tenderness - Respiratory Respiratory exam: Present: CTAB. Absent: accessory muscle use, rales, rhonchi, wheezes - Cardiovascular Cardiovascular exam: Present: RRR, +S1, +S2. Absent: diastolic murmur, gallop, rubs, systolic murmur - GI/Abdominal GI/Abdominal exam: Present: normal bowel sounds, soft. Absent: distended, hepatomegaly, tenderness - Extremities Exam Extremities exam: Present: normal inspection, warm, radial pulses palpable and symmetrical. Absent: calf tenderness, cyanotic, pedal edema, tenderness - Neurological Exam Neurological exam: Present: alert, oriented X3, no focal deficits. Absent: altered, facial droop, speech deficit - Skin Skin exam: Present: dry, intact, normal color, warm. Absent: rash Internal Medicine: Result - Labs CBC & Chem 7: 07/26/17 03:36 07/26/17 09:14 Labs: Short CBC 07/26/17 Range/Units 03:36 WBC 5.6 (4.3-11.1) K/mcL Hgb 13.0 D (12.9-16.9) g/dL Hct 38.0 (37.5-50.1) % Plt Count 194 (140-400) K/mcL Neutrophils # 3.0 (1.6-8.9) K/mcL BMP 07/26/17 07/26/17 07/26/17 03:36 09:14 09:14 Sodium 135 L Potassium 2.9 L 3.0 L Chloride 102 Carbon Dioxide 23 BUN 15 Creatinine 0.69 L Glucose 111 H Calcium 7.6 L 8.2 L Cardiac Enzymes 07/25/17 07/26/17 07/26/17 Range/Units 22:04 03:36 09:14 Troponin I < 0.03 < 0.03 < 0.03 (< 0.04) ng/mL Liver Function 07/26/17 Range/Units 03:36 Total Bilirubin 0.6 (0.3-1.0) mg/dL AST 103 H (13-39) Units/L ALT 97 H (7-52) Units/L Alkaline Phosphatase 50 (34-104) Units/L Albumin 3.3 L (3.5-5.7) g/dL - ABG Interpretation ABG results: PT/INR, D-dimer PT 12.4 Seconds (9.4-12.1) H 07/26/17 03:36 - Impressions Impressions Echocardiogram 07/26/17 03:58 Impressions: Technically sub-optimal due to poor echocardiographic windows. LVEF 70%. Normal LV chamber size and function. Mild concentric left ventricular hypertrophy. Mild left ventricular diastolic dysfunction. Normal right ventricular structure and function. No evidence of pulmonary hypertension. No significant valvular dysfunction. Left Ventricular Wall Motion: Rest Echo Findings All wall segments showed normal motion. Findings: Study Quality * Technically sub-optimal due to poor echocardiographic windows. ECG Findings * Sinus rhythm with PACs. Left Ventricle * LVEF 70%. * Normal LV chamber size and function. * Mild concentric left ventricular hypertrophy. * Mild left ventricular diastolic dysfunction. Right Ventricle * Normal right ventricular structure and function. Left Atrium * Mildly dilated left atrium. Right Atrium * Normal right atrial size. Interatrial Septum * Interatrial septum not well evaluated. Aortic Valve * Aortic valve not well visualized. * No aortic regurgitation. * No aortic stenosis. Mitral Valve * Normal mitral valve structure and function. Tricuspid Valve * Normal tricuspid valve structure and function. * Trace tricuspid regurgitation. * No evidence of pulmonary hypertension. Pulmonic Valve * Pulmonic valve is not well visualized. Aorta * Normally sized aortic root. Pericardium * The pericardium appears normal. IVC * Normal IVC dimensions and inspiratory collapse. Pulmonary Artery * Pulmonary artery not well visualized. Consult Discharge Plan - Plan Referrals: Marbin Barger Jr, MD [Primary Care Provider] -
[2017-07-27 05:06] LABS: Basophils % 0.4 %; Hematocrit 38.9 % (37.5-50.1); Hemoglobin 13.3 g/dL (12.9-16.9); Immature Granulocytes % 0.4 % (0-4); Lymphocytes # 2.1 K/mcL (0.6-4.6); Mean Corpuscular HGB Conc 34.2 g/dL (31.6-35.5); Mean Corpuscular Hemoglobin 28.2 pg (28.0-33.3); Mean Corpuscular Volume 82.6 fL (83.0-100.0); Mean Platelet Volume 9.8 fL (9.4-12.4); Monocytes # 0.7 K/mcL (0.0-1.3); Monocytes % 13.7 %; Neutrophils # 2.3 K/mcL (1.6-8.9); Nucleated Red Blood Cells 0.4 /100 WBC (0); Platelet Count 186 K/mcL (140-400); Red Blood Count 4.71 M/mcL (4.19-5.50); Red Cell Distribution Width 13.7 % (11.5-14.5); Segmented Neutrophils % 44.5 %
[2017-07-27 05:15] LABS: Alanine Aminotransferase 99 Units/L (7-52); Aspartate Amino Transferase 109 Units/L (13-39)
[2017-07-27] MEDS: Pantoprazole 40 MG VIAL IVP SCH (05:27)
[2017-07-27] MEDS: *HR* Heparin 5,000 UNIT/ML VIAL SQ SCH (05:27)
[2017-07-27 07:48] LABS: Bilirubin,Urine Negative (Negative); Blood,Urine Negative (Negative); Clarity,Urine Clear (Clear); Color,Urine Yellow (Yellow); Glucose,Urine (UA) 250 mg/dL (Normal); Ketones,Urine 80 mg/dL (Negative); Leukocyte Esterase,Urine Negative (Negative); Nitrite,Urine Negative (Negative); Protein,Urine 30 mg/dL (Neg-Trace); Specific Gravity,Urine 1.024 (1.010-1.025); Urobilinogen,Urine Normal (Normal)
[2017-07-27 07:50] LABS: Bacteria,Urine None Seen per hpf (None-Few); Hyaline Casts,Urine None Seen per lpf (None-Few); Squamous Epithelial Cell,Urine Moderate per lpf (None-Few)
[2017-07-27 08:45] LABS: BUN/Creatinine Ratio 11 (6-26); Blood Urea Nitrogen 9 mg/dL (8-23); Calcium 8.3 mg/dL (8.6-10.3); Carbon Dioxide 25 mEq/L (23-29); Chloride 100 mEq/L (98-107); Glucose 144 mg/dL (70-105); Osmolality,Calculated 279 (280-300); Potassium 2.9 mEq/L (3.5-5.1); Sodium 134 mEq/L (136-145); eGFR For African Americans > 60 (> 60); eGFR For Non-African Americans > 60 (> 60)
[2017-07-27 12:37] LABS: Estimated Average Glucose 192 mg/dl; Hemoglobin A1C 8.3 %
[2017-07-27 15:49] VITALS: BP 170/88
--- NOTE | 2017-07-27 16:13 | Electrocardiograph Report ---
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
--- NOTE | 2017-07-27 16:30 | Electrocardiograph Report ---
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
--- NOTE | 2017-07-27 17:09 | Discharge Summary ---
- NOTES TO OUTPATIENT PROVIDER Notes to Outpatient Provider: Pt signed out AMA because he wanted to smoke. He left with K+ of 2.9, he was encouraged to stay for krider, but refused. He will need follow up with elevated LFTs, as well. Orders not resulted at time of discharge: Pending orders 07/26/17 03:58 ECG 12 lead ECG [ECG] Routine 07/26/17 17:57 AFP Tumor Marker Non- Routine 07/27/17 07:00 ECG 12 lead ECG [ECG] Routine Date of Encounter: 07/27/17 Time of Encounter: 08:30 - Discharge Diagnosis (1) Dehydration Priority: Secondary Status: Acute Comments: Secondary to nausea, vomiting, diarrhea for 4 days. Patient denies any other symptoms today. No diarrhea since yesterday. Patient was continued on IV fluids, recommended replacing potassium at 2.9 with a K rider. Patient stated that he would rather than stay here. Patient was made aware of risks of hypokalemia, he states he has plenty of potassium at home and he will take and when he gets there. (2) Diarrhea Priority: Secondary Status: Acute Comments: Patient reports diarrhea for 4 days prior to arrival, up to 3 episodes daily. GI panel is negative. Stool occult blood is positive. Hemoglobin is stable. Most likely due to inflammation and irritation. Patient denies diarrhea since yesterday. Qualifiers: Diarrhea type: unspecified type Qualified Code(s): R19.7 - Diarrhea, unspecified (3) Hypokalemia Priority: Secondary Status: Acute Comments: Secondary to nausea, vomiting, diarrhea. Hydrochlorothiazide was held during the visit. Magnesium was within normal limits. Patient received K rider 40 mEq 2, another was ordered today. Patient refused to stay. He reports that he has potassium that he can take at home. He states, "I would rather than stay here." reports that he wants to go smoke (4) Liver mass Priority: Secondary Status: Acute Comments: Stable. (5) Nausea & vomiting Priority: Secondary Status: Acute Comments: Plan as above. He should not reports no vomiting for 3 days. Qualifiers: Vomiting type: unspecified Vomiting Intractability: intractable Qualified Code(s): R11.2 - Nausea with vomiting, unspecified (6) Transaminitis Priority: Secondary Status: Acute Comments: Elevated. Likely secondary to nausea and vomiting. Bilirubin is within normal limits, alk phosphatase is within normal limits. Patient will need close outpatient follow-up with primary care. Hepatitis panel was negative. (7) Diabetes mellitus type 2, uncontrolled Priority: Secondary Status: Chronic Comments: Diabetes uncontrolled with A1c of 8.3%. Continue home medications after discharge. Qualifiers: Diabetes mellitus custodial insulin use: without custodial use Diabetes mellitus complication status: without complication Qualified Code(s): E11.65 - Type 2 diabetes mellitus with hyperglycemia (8) GERD (gastroesophageal reflux disease) Priority: Secondary Status: Chronic Comments: Chronic. Continue home medications. Qualifiers: Esophagitis presence: esophagitis presence not specified Qualified Code(s) : K21.9 - Gastro-esophageal reflux disease without esophagitis (9) HTN (hypertension) Priority: Secondary Status: Chronic Comments: Chronic. Continue home medications. Qualifiers: Hypertension type: essential hypertension Qualified Code(s): I10 - Essential (primary) hypertension (10) Tobacco abuse Priority: Secondary Status: Chronic Comments: Patient continues to smoke. He signed out AGAINST MEDICAL ADVICE because he wanted to go smoke. (11) DVT prophylaxis Priority: Secondary Status: Acute Comments: GINNY hose were ordered. Hospital course: Mr. Bucio is a 67 year old male with diabetes, liver mass, enchondroma right humerus, GERD, tobacco abuse. Patient presented to the emergency department with complaints of nausea, vomiting, diarrhea for 4 days prior to arrival. All symptoms abated while he was here. He was treated with IV fluids and antiemetics. She was evaluated by oncology while he was here for liver mass. He reports that he has noted about the liver mass for about 10 years, he had a biopsy, and nothing was done after that. CT abdomen and pelvis the right hepatic lobe, has mildly enlarged but similar in appearance to prior exams. Oncology trended images of his last 8 years any mass appears to be stable. AST and ALTs remained elevated at the time patient left. Bilirubin and alk phosphatase or within normal limits. His hepatic panel was negative. Unclear etiology of nausea vomiting and diarrhea other than gastritis. Patient had mild hypertension at discharge, patient was very agitated and argumentative. He stated that he wanted to leave AGAINST MEDICAL ADVICE because he needs to go smoke. He was made aware that he needed IV potassium. He refused to stay for K rider and states that he has potassium at home and asks, "What, do I just take like eight of them every day?" I explained to him that we could more easily monitor the amount of potassium that he is receiving and that I did not advise taking that much potassium daily. He states that he has bananas at home and that , "I would rather than stay here." states that pt wants to go outside to smoke. Pt left AMA. Discharge discussed with: patient, family, nurse - Time Spent with Patient Total time spent providing and/or coordinating discharge services: Less than 30 minutes - Discharge Medications Home Medications: Losartan Potassium [Cozaar] 50 mg PO DAILY #0 03/04/15 [History] Metformin HCl [Metformin HCl ER] 1,000 mg PO BID #0 03/04/15 [History] Metoprolol [Lopressor] 50 mg PO BID #0 03/04/15 [History] Omeprazole [PriLOSEC] 20 mg PO BIDAC #0 03/04/15 [History] Potassium Chloride [Klor-Con 10] 10 meq PO BID #0 03/04/15 [History] Simvastatin [Zocor] 40 mg PO HS #0 03/04/15 [History] hydroCHLOROthiazide [Hydrochlorothiazide] 25 mg PO DAILY #0 03/04/15 [History] Loratadine [Claritin] 10 mg PO DAILY #10 tablet 03/06/15 [Rx] Paroxetine HCl [Paxil] 40 mg PO DAILY #0 03/07/15 [History] SitaGLIPtin [Januvia] 100 mg PO DAILY #30 tablet 03/07/15 [Rx] HYDROcodone/Acet 5/325 mg [Lydia 5-325 mg] 1 tab PO Q4H PRN 07/25/17 [History] Allergies/Adverse Reactions: 3 Allergy/AdvReac Type Severity Reaction Status Date / Time No Known Allergies Allergy Verified 07/25/17 14:41 Date of admission: 07/25/17 19:28 Primary care physician: Marbin Barger Jr, MD Consults: 07/25/17 21:29 Consult to Physician [CONS] Routine Consulting Provider: Jossy De La O Reason for Consult: Liver mass Call Completed: No 07/26/17 03:58 Consult to Cardiac Rehabilitation-Phase1 [CONS] Routine Comment: Reason for Consult: AMI Call Completed: Yes Consult to Nurse Navigator [CONS] Routine Comment: Discharging clinician: Marielle Blunt Anticipated date of discharge: 07/27/17 - Constitutional Vitals: Temp Pulse Resp BP Pulse Ox 99 F 90 16 170/88 95 07/27/17 15:46 07/27/17 15:46 07/27/17 15:46 07/27/17 15:46 07/27/17 15:46 General appearance: Present: cooperative, A&O X 3, pleasant, no acute distress, answers questions appropriately - Head Head exam: Present: atraumatic, normal inspection, normocephalic - Eye Eye exam: Present: normal appearance, conjuntiva pink, sclera anicteric - Neck Neck exam general surgery: Present: supple, trachea midline. Absent: lymphadenopathy - Respiratory Respiratory exam: Present: CTAB. Absent: accessory muscle use, rales, rhonchi, wheezes - Cardiovascular Cardiovascular exam: Present: RRR, +S1, +S2. Absent: diastolic murmur, gallop, rubs, systolic murmur - GI/Abdominal GI/Abdominal exam: Present: normal bowel sounds, soft. Absent: distended, hepatomegaly, tenderness - Extremities Exam Extremities exam: Present: warm, radial pulses palpable and symmetrical. Absent : calf tenderness, cyanotic, pedal edema - Neurological Exam Neurological exam: Present: alert, oriented X3, no focal deficits. Absent: facial droop, speech deficit - Skin Skin exam: Present: dry, intact, normal color, warm. Absent: rash - Patient Status Disposition: Left Against Medical Advice Condition: Fair Functional capacity at discharge: independent ambulation Overall status at discharge: patient is back to baseline - Discharge Instructions Follow Up With: Marbin Barger Jr, MD [Primary Care Provider] -
--- NOTE | 2017-07-29 12:29 | Electrocardiograph Report ---
[place] [id number] Test Date: 2017-07-27 Pat Name: Scot Bucio Department: 113 Room: 3B22 Gender: M [employer] [place] [employer]: : 1950 Requested By: Nevaeh Dhaliwal Order Number: [id number] Reading MD: Nasir Beyer Measurements Intervals [place] Rate: 80 P: -26 MN: 119 QRS: 31 QRSD: 90 T: 29 QT: 387 QTc: 423 Interpretive Statements SINUS RHYTHM WITH SHORT MN INTERVAL Electronically Signed On 07-29-2017 12:27:40 EDT by Nasir Beyer
== END 2017-07-27 17:01 | disposition left against medical advice (07) ==
LOC: EMEROO 14:34 → 3BNU 14:34
PROVIDERS: ADMIT Hospitalist; ATTEND Registered Nurse

== ENCOUNTER 2021-12-08 15:18 | Inpatient (IN) ==
[2021-12-08] MEDS ORDERED: Td (TENIVAC) Vaccine 0.5 ML VIAL IM ONE (16:10)
[2021-12-08 16:43] LABS: Basophils # 0.1 K/mcL (0.0-0.2); Basophils % 0.6 %; Eosinophils # 0.1 K/mcL (0.0-0.6); Eosinophils % 0.8 %; Hematocrit 40.8 % (37.5-50.1); Hemoglobin 13.3 g/dL (12.9-16.9); Immature Granulocytes % 0.4 % (0-4); Lymphocytes # 1.7 K/mcL (0.6-4.6); Lymphocytes % 16.8 %; Mean Corpuscular HGB Conc 32.6 g/dL (31.6-35.5); Mean Corpuscular Hemoglobin 28.6 pg (28.0-33.3); Mean Corpuscular Volume 87.7 fL (83.0-100.0); Mean Platelet Volume 9.3 fL (9.4-12.4); Monocytes # 0.8 K/mcL (0.0-1.3); Monocytes % 7.4 %; Neutrophils # 7.6 K/mcL (1.6-8.9); Platelet Count 348 K/mcL (140-400); Red Blood Count 4.65 M/mcL (4.19-5.50); Red Cell Distribution Width 13.9 % (11.5-14.5); White Blood Count 10.2 K/mcL (4.3-11.1)
[2021-12-08 16:46] LABS: VBG Ionized Calcium 1.07 mmol/L (1.15-1.35)
[2021-12-08 18:14] LABS: Alanine Aminotransferase 8 Units/L (7-52); Albumin 4.2 g/dL (3.5-5.7); Albumin/Globulin Ratio 1.6 (1.1-2.2); Alkaline Phosphatase 51 Units/L (34-104); Aspartate Amino Transferase 19 Units/L (13-39); BUN/Creatinine Ratio 13 (6-26); Bilirubin,Direct 0.1 mg/dL (0.0-0.2); Bilirubin,Indirect 0.6 mg/dL (0.0-1.0); Bilirubin,Total 0.7 mg/dL (0.3-1.0); Blood Urea Nitrogen 15 mg/dL (8-23); Calcium 8.9 mg/dL (8.6-10.3); Carbon Dioxide 21 mEq/L (23-29); Chloride 103 mEq/L (98-107); Globulin 2.7 g/dL (2.4-3.5); Glucose 120 mg/dL (70-105); Lipase 9 Units/L (11-82); Magnesium 1.5 mg/dL (1.6-2.6); Osmolality,Calculated 288 (280-300); Phosphorous 3.6 mg/dL (2.7-4.5); Potassium 3.7 mEq/L (3.5-5.1); Sodium 138 mEq/L (136-145); Thyroid Stimulating Hormone 1.482 mcIU/mL (0.340-5.600); Total Protein 6.9 g/dL (6.4-8.9); Troponin I < 0.03 ng/mL (< 0.04)
[2021-12-08] MEDS: Tdap (Boostrix) Vaccine 0.5 ML SYRINGE IM ONE (18:30)
[2021-12-08 20:13] LABS: Amorphous Sediment,Urine Few per hpf (None-Few); Bacteria,Urine Few per hpf (None-Few); Bilirubin,Urine Negative (Negative); Blood,Urine Negative (Negative); Clarity,Urine Turbid (Clear); Color,Urine Yellow (Yellow); Glucose,Urine (UA) Normal (Normal); Hyaline Casts,Urine Many per lpf (None Seen); Ketones,Urine Trace mg/dL (Negative); Leukocyte Esterase,Urine Negative (Negative); Mucus,Urine Few per lpf (None-Few); Nitrite,Urine Negative (Negative); PH,Urine 5.5 pH Units (5.0-8.0); Protein,Urine 30 mg/dL (Neg-Trace); Specific Gravity,Urine > 1.030 (1.010-1.025); Squamous Epithelial Cell,Urine Few per hpf (None-Few); Urobilinogen,Urine Normal (Normal)
[2021-12-08] MEDS ORDERED: Dextrose Gel 15 GM/37.5 ML TUBE PO PRN ×2 (20:31)
[2021-12-08] MEDS ORDERED: D5% in Water 1,000 ML IVC PRN (20:31)
[2021-12-08] MEDS ORDERED: *HR* Dextrose 50 % in Water (Syg) 50 ML SYRINGE IVP PRN (20:31)
[2021-12-08] MEDS ORDERED: Magnesium Oxide 400 MG TABLET PO ONE (20:33)
[2021-12-08 20:38] LABS: Adenovirus Not Detected (Not Detect); Bordetella Pertussis Not Detected (Not Detect); Chlamydophila pneumoniae Not Detected (Not Detect); Coronavirus 229E Not Detected (Not Detect); Coronavirus HKU1 Not Detected (Not Detect); Coronavirus NL63 Not Detected (Not Detect); Coronavirus OC43 Not Detected (Not Detect); Human Metapneumovirus Not Detected (Not Detect); Human Rhinovirus/Enterovirus Not Detected (Not Detect); Influenza A Subtype 2009 H1 Not Detected (Not Detect); Influenza B Not Detected (Not Detect); Parainfluenza Virus 1 Not Detected (Not Detect); Parainfluenza Virus 2 Not Detected (Not Detect); Parainfluenza Virus 3 Not Detected (Not Detect); Parainfluenza Virus 4 Not Detected (Not Detect); Respiratory Syncytial Virus Not Detected (Not Detect); SARS-CoV-2 Not Detected (Not Detect)
[2021-12-08 20:39] LABS: Mycoplasma pneumoniae Not Detected (Not Detect)
[2021-12-08] MEDS ORDERED: Acetaminophen 325 MG TABLET PO PRN (20:40)
[2021-12-08] MEDS ORDERED: Naloxone 0.4 MG/ML INJ IVP PRN (20:40)
[2021-12-08] MEDS ORDERED: Ondansetron 4 MG/2 ML VIAL IVP PRN (20:40)
[2021-12-08 21:09] LABS: Amphetamine Screen,Urine Negative ng/mL (Cutoff=1000); Barbiturate Screen,Urine Negative ng/mL (Cutoff=200); Benzodiazepines Screen,Urine Negative ng/mL (Cutoff=200); Cannabinoid Screen,Urine Positive ng/mL (Cutoff = 50); Cocaine Screen,Urine Negative ng/mL (Cutoff= 300); Opiate Screen,Urine Positive ng/mL (Cutoff=300); Phencyclidine Screen,Urine Negative ng/mL (Cutoff=25)
[2021-12-08] MEDS: cefTRIAXone 1,000 MG in 0.9 % Sodium Chloride Mini Bag 100 ML IVPB SCH (21:45)
[2021-12-08] MEDS: Insulin LISPRO 300 UNITS/3 ML VIAL SUBQ SCH (21:48)
[2021-12-08] MEDS: 0.9 % Sodium Chloride 1,000 ML IVC SCH (21:48)
[2021-12-08 21:58] LABS: Ethanol < 10 mg/dL (Less than 10)
[2021-12-09] MEDS: Tdap (Boostrix) Vaccine 0.5 ML SYRINGE IM ONE (06:28)
[2021-12-09 07:00] LABS: Hematocrit 33.6 % (37.5-50.1); Mean Corpuscular HGB Conc 32.7 g/dL (31.6-35.5); Mean Corpuscular Hemoglobin 28.6 pg (28.0-33.3); Mean Corpuscular Volume 87.3 fL (83.0-100.0); Mean Platelet Volume 9.3 fL (9.4-12.4); Platelet Count 259 K/mcL (140-400); Red Blood Count 3.85 M/mcL (4.19-5.50); Red Cell Distribution Width 13.7 % (11.5-14.5); White Blood Count 9.4 K/mcL (4.3-11.1)
[2021-12-09 07:07] LABS: INR 1.2; Prothrombin Time 13.4 Seconds (9.4-12.1)
[2021-12-09 07:10] LABS: Activated Partial Thrombo Time 32.5 Seconds (26.0-36.0)
[2021-12-09 07:19] LABS: Calcium 8.1 mg/dL (8.6-10.3); Chol/HDL Ratio 2.4 (0-4.9); Magnesium 1.5 mg/dL (1.6-2.6); Potassium 3.3 mEq/L (3.5-5.1)
[2021-12-09] MEDS: cefTRIAXone 1,000 MG in 0.9 % Sodium Chloride Mini Bag 100 ML IVPB SCH (07:26)
[2021-12-09] MEDS: 0.9 % Sodium Chloride 1,000 ML IVC SCH (07:30)
[2021-12-09] MEDS: Insulin LISPRO 300 UNITS/3 ML VIAL SUBQ SCH ×4 (08:54→20:24)
[2021-12-09 10:27] LABS: Estimated Average Glucose 94 mg/dl; Hemoglobin A1C 4.9 %
[2021-12-10 01:33] LABS: Hematocrit 33.6 % (37.5-50.1); Hemoglobin 11.1 g/dL (12.9-16.9); Mean Corpuscular Hemoglobin 29.4 pg (28.0-33.3); Mean Corpuscular Volume 88.9 fL (83.0-100.0); Mean Platelet Volume 10.7 fL (9.4-12.4); Platelet Count 217 K/mcL (140-400); Red Blood Count 3.78 M/mcL (4.19-5.50); Red Cell Distribution Width 13.9 % (11.5-14.5); White Blood Count 8.8 K/mcL (4.3-11.1)
[2021-12-10] MEDS ORDERED: *HR* LORazepam 1 MG TABLET PO ONE (01:47)
[2021-12-10 01:51] LABS: BUN/Creatinine Ratio 15 (6-26); Blood Urea Nitrogen 14 mg/dL (8-23); Calcium 8.2 mg/dL (8.6-10.3); Carbon Dioxide 24 mEq/L (23-29); Chloride 107 mEq/L (98-107); Glucose 122 mg/dL (70-105); Osmolality,Calculated 288 (280-300); Potassium 4.1 mEq/L (3.5-5.1); Sodium 138 mEq/L (136-145)
[2021-12-10] MEDS: Insulin LISPRO 300 UNITS/3 ML VIAL SUBQ SCH ×4 (09:14→19:56)
[2021-12-10] MEDS: PARoxetine 20 MG TABLET PO SCH (09:19)
[2021-12-10] MEDS ORDERED: Calcium Gluconate 1gm/50mL 1 GM/50 ML BAG IVPB ONE (10:43)
[2021-12-10 11:36] LABS: Magnesium 1.9 mg/dL (1.6-2.6); Phosphorous 2.6 mg/dL (2.7-4.5)
[2021-12-11] MEDS ORDERED: *HR* Metoprolol 5 MG/5 ML VIAL IVP ONE (03:04)
[2021-12-11] MEDS ORDERED: *HR* Labetalol 20 MG/4 ML SYRINGE IVP ONE (05:12)
[2021-12-11] MEDS: PARoxetine 20 MG TABLET PO SCH (07:46)
[2021-12-11] MEDS: Insulin LISPRO 300 UNITS/3 ML VIAL SUBQ SCH ×4 (07:47→21:00)
[2021-12-11 08:55] LABS: BUN/Creatinine Ratio 12 (6-26); Blood Urea Nitrogen 9 mg/dL (8-23); Calcium 9.3 mg/dL (8.6-10.3); Carbon Dioxide 27 mEq/L (23-29); Chloride 102 mEq/L (98-107); Glucose 114 mg/dL (70-105); Magnesium 1.7 mg/dL (1.6-2.6); Osmolality,Calculated 284 (280-300); Phosphorous 3.7 mg/dL (2.7-4.5); Potassium 3.6 mEq/L (3.5-5.1); Sodium 137 mEq/L (136-145)
[2021-12-12] MEDS: Insulin LISPRO 300 UNITS/3 ML VIAL SUBQ SCH ×4 (06:59→21:03)
[2021-12-12] MEDS: PARoxetine 20 MG TABLET PO SCH (07:43)
[2021-12-13] MEDS: traZODone 50 MG TABLET PO PRN ×2 (00:45→20:05)
[2021-12-13] MEDS ORDERED: Haloperidol Lactate 5 MG/ML VIAL IVP ONE (01:00)
[2021-12-13] MEDS: Insulin LISPRO 300 UNITS/3 ML VIAL SUBQ SCH ×4 (08:40→20:07)
[2021-12-13] MEDS: PARoxetine 20 MG TABLET PO SCH (09:16)
[2021-12-13] MEDS: Nicotine 21 MG PATCH.TD24 TD SCH (15:14)
[2021-12-14] MEDS ORDERED: *HR* Enoxaparin 40 MG/0.4 ML SYRINGE SQ SCH (06:00)
[2021-12-14] MEDS: Insulin LISPRO 300 UNITS/3 ML VIAL SUBQ SCH ×3 (08:05→16:44)
[2021-12-14] MEDS: PARoxetine 20 MG TABLET PO SCH (08:07)
[2021-12-14] MEDS: Nicotine 21 MG PATCH.TD24 TD SCH (08:10)
[2021-12-14 12:11] LABS: Influenza A PCR Negative (Negative); Influenza B PCR Negative (Negative); Resp. Syncytial Virus PCR Negative (Negative)
[2021-12-14 12:12] LABS: SARS-CoV-2 by PCR (In House) Negative (Negative)
[2021-12-14 14:45] VITALS: BP 124/76; PULSE 71; TEMP 98.2; O2SAT 98
== END 2021-12-14 19:01 | disposition other institution (70) | DRG 640 ==
LOC: EMEROOARM 15:18 → 3BNU 15:18 → SUATTDRO 12-10 15:23
PROVIDERS: ADMIT Internal Medicine; ATTEND Registered Nurse

== ENCOUNTER 2022-02-25 16:22 | Observation (INO) ==
[2022-02-25] MEDS ORDERED: 0.9 % Sodium Chloride 1,000 ML IV ONE (16:53)
[2022-02-25 18:46] LABS: Basophils # 0.1 K/mcL (0.0-0.2); Basophils % 0.5 %; Eosinophils # 0.1 K/mcL (0.0-0.6); Eosinophils % 0.8 %; Hematocrit 38.8 % (37.5-50.1); Hemoglobin 12.4 g/dL (12.9-16.9); Immature Granulocytes % 0.4 % (0-4); Lymphocytes # 2.8 K/mcL (0.6-4.6); Lymphocytes % 28.7 %; Mean Corpuscular Hemoglobin 28.4 pg (28.0-33.3); Mean Platelet Volume 9.6 fL (9.4-12.4); Monocytes # 0.9 K/mcL (0.0-1.3); Monocytes % 8.6 %; Platelet Count 291 K/mcL (140-400); Red Blood Count 4.36 M/mcL (4.19-5.50); Red Cell Distribution Width 13.7 % (11.5-14.5); White Blood Count 9.9 K/mcL (4.3-11.1)
[2022-02-25 18:53] LABS: INR 1.2; Prothrombin Time 12.9 Seconds (9.4-12.1)
[2022-02-25 18:56] LABS: Activated Partial Thrombo Time 35.1 Seconds (26.0-36.0)
[2022-02-25 19:13] LABS: Alanine Aminotransferase 9 Units/L (7-52); Albumin 4.2 g/dL (3.5-5.7); Albumin/Globulin Ratio 1.7 (1.1-2.2); Alkaline Phosphatase 58 Units/L (34-104); Aspartate Amino Transferase 13 Units/L (13-39); BUN/Creatinine Ratio 14 (6-26); Bilirubin,Direct 0.1 mg/dL (0.0-0.2); Bilirubin,Indirect 0.4 mg/dL (0.0-1.0); Bilirubin,Total 0.5 mg/dL (0.3-1.0); Blood Urea Nitrogen 14 mg/dL (8-23); Calcium 9.3 mg/dL (8.6-10.3); Carbon Dioxide 29 mEq/L (23-29); Chloride 109 mEq/L (98-107); Creatine Kinase 24 Units/L (30-223); Ethanol < 10 mg/dL (Less than 10); Globulin 2.5 g/dL (2.4-3.5); Glucose 102 mg/dL (70-105); Osmolality,Calculated 287 (280-300); Potassium 3.8 mEq/L (3.5-5.1); Sodium 138 mEq/L (136-145); Total Protein 6.7 g/dL (6.4-8.9); Troponin I < 0.03 ng/mL (< 0.04)
[2022-02-25 19:26] LABS: Thyroid Stimulating Hormone 0.721 mcIU/mL (0.340-5.600)
[2022-02-25 19:26] LABS: Amphetamine Screen,Urine Negative ng/mL (Cutoff=1000); Barbiturate Screen,Urine Negative ng/mL (Cutoff=200); Benzodiazepines Screen,Urine Negative ng/mL (Cutoff=200); Cannabinoid Screen,Urine Positive ng/mL (Cutoff = 50); Cocaine Screen,Urine Negative ng/mL (Cutoff= 300); Opiate Screen,Urine Positive ng/mL (Cutoff=300); Phencyclidine Screen,Urine Negative ng/mL (Cutoff=25)
[2022-02-25 19:31] LABS: Influenza A PCR Negative (Negative); Influenza B PCR Negative (Negative); Resp. Syncytial Virus PCR Negative (Negative)
[2022-02-25 19:32] LABS: SARS-CoV-2 by PCR (In House) Negative (Negative)
[2022-02-25 19:33] LABS: Bilirubin,Urine Negative (Negative); Blood,Urine Negative (Negative); Clarity,Urine Clear (Clear); Color,Urine Yellow (Yellow); Glucose,Urine (UA) 30 mg/dL (Normal); Ketones,Urine Negative (Negative); Leukocyte Esterase,Urine Negative (Negative); Mucus,Urine Few per lpf (None-Few); Nitrite,Urine Negative (Negative); PH,Urine 5.5 pH Units (5.0-8.0); Protein,Urine 50 mg/dL (Neg-Trace); Specific Gravity,Urine > 1.030 (1.010-1.025); Sperm,Urine Present per hpf (None Seen); Squamous Epithelial Cell,Urine Few per hpf (None-Few); WBC,Urine 0-3 per hpf (0-3)
[2022-02-25] MEDS ORDERED: Naloxone 0.4 MG/ML INJ IVP PRN (21:16)
[2022-02-25] MEDS ORDERED: Acetaminophen 325 MG TABLET PO PRN (21:16)
[2022-02-25] MEDS ORDERED: Melatonin 3 MG TABLET PO PRN (21:16)
[2022-02-25] MEDS ORDERED: Ondansetron ODT 4 MG TAB.RAPDIS SL PRN (21:16)
[2022-02-25] MEDS ORDERED: Dextrose Gel 15 GM/37.5 ML TUBE PO PRN ×2 (21:19)
[2022-02-25] MEDS ORDERED: *HR* Dextrose 50 % in Water (Syg) 50 ML SYRINGE IVP PRN (21:19)
[2022-02-25] MEDS ORDERED: D5% in Water 1,000 ML IVC PRN (21:19)
[2022-02-25] MEDS: Insulin LISPRO 300 UNITS/3 ML VIAL SUBQ SCH (22:30)
[2022-02-25] MEDS: Nicotine 21 MG PATCH.TD24 TD SCH (23:47)
[2022-02-25] MEDS: 0.9 % Sodium Chloride 1,000 ML IVC SCH (23:47)
[2022-02-26 05:44] LABS: Estimated Average Glucose 100 mg/dl; Hemoglobin A1C 5.1 %
[2022-02-26 05:45] LABS: Basophils # 0.1 K/mcL (0.0-0.2); Basophils % 0.8 %; Eosinophils # 0.2 K/mcL (0.0-0.6); Eosinophils % 2.7 %; Hematocrit 33.2 % (37.5-50.1); Immature Granulocytes % 0.3 % (0-4); Lymphocytes # 2.9 K/mcL (0.6-4.6); Mean Corpuscular HGB Conc 32.2 g/dL (31.6-35.5); Mean Corpuscular Hemoglobin 28.6 pg (28.0-33.3); Mean Corpuscular Volume 88.8 fL (83.0-100.0); Mean Platelet Volume 9.9 fL (9.4-12.4); Monocytes # 0.6 K/mcL (0.0-1.3); Monocytes % 7.9 %; Neutrophils # 3.9 K/mcL (1.6-8.9); Platelet Count 213 K/mcL (140-400); Red Blood Count 3.74 M/mcL (4.19-5.50); Red Cell Distribution Width 13.5 % (11.5-14.5); Segmented Neutrophils % 50.3 %; White Blood Count 7.7 K/mcL (4.3-11.1)
[2022-02-26 05:47] LABS: Hemoglobin 10.7 g/dL (12.9-16.9)
[2022-02-26 06:13] LABS: Calcium 8.4 mg/dL (8.6-10.3); Magnesium 1.6 mg/dL (1.6-2.6); Phosphorous 3.3 mg/dL (2.7-4.5); Potassium 3.3 mEq/L (3.5-5.1)
[2022-02-26] MEDS: Insulin LISPRO 300 UNITS/3 ML VIAL SUBQ SCH ×4 (08:37→20:02)
[2022-02-26] MEDS: 0.9 % Sodium Chloride 1,000 ML IVC SCH (13:55)
[2022-02-26] MEDS ORDERED: *HR* HYDROcodone/Acet 5/325 mg TABLET PO PRN (14:54)
[2022-02-26 15:36] VITALS: O2SAT 96
[2022-02-26 19:37] VITALS: BP 129/75; PULSE 64; TEMP 98
[2022-02-26] MEDS: Nicotine 21 MG PATCH.TD24 TD SCH (20:03)
[2022-02-27] MEDS ORDERED: *HR* Enoxaparin 40 MG/0.4 ML SYRINGE SQ SCH (06:00)
== END 2022-02-26 23:59 | disposition other institution (70) ==
LOC: EMEROOARM 16:22 → 3BNU 16:22 → SUATTDRO 22:11 → 3BNU 22:48
PROVIDERS: ADMIT Internal Medicine; ATTEND Nurse Practitioner